=== PATIENT | female | born 1985 | race African-American/Black ===

== ENCOUNTER 2018-02-15 10:14 | Emergency (ER) | payer MEDICAID ==
[~2018-02-15] VITALS: Ht 177.8 cm; Wt 61.8 kg
[2018-02-15] MEDS ORDERED: LORAZEPAM 1MG TABLET PO ONE (11:15)
[2018-02-15] MEDS ORDERED: IBUPROFEN 600MG TABLET PO ONE (11:15)
[2018-02-15 14:32] VITALS: BP 115/78
== END 2018-02-15 14:34 | disposition home or self-care (01) ==
LOC: ER 10:14
DX: S90.01XA Contusion of right ankle, initial encounter (principal); J45.909 Unspecified asthma, uncomplicated; G43.909 Migraine, unspecified, not intractable, without status migrainosus; Z88.0 Allergy status to penicillin; Z88.1 Allergy status to other antibiotic agents; Z88.5 Allergy status to narcotic agent; Z91.040 Latex allergy status; Z88.8 Allergy status to other drugs, medicaments and biological substances; W22.8XXA Striking against or struck by other objects, initial encounter; Y93.01 Activity, walking, marching and hiking; Y92.89 Other specified places as the place of occurrence of the external cause; Y99.8 Other external cause status
CPT/HCPCS: 71045; 73610; 73630; 81025; 99284

== ENCOUNTER 2018-02-15 15:28 | Emergency (ER) | payer MEDICAID ==
[~2018-02-15] VITALS: Ht 177.8 cm; Wt 61.6 kg
[2018-02-15 17:34] VITALS: BP 122/62
== END 2018-02-16 00:46 | disposition home or self-care (01) ==
LOC: ER 18:24
DX: Z13.1 Encounter for screening for diabetes mellitus (principal); J45.909 Unspecified asthma, uncomplicated; G43.909 Migraine, unspecified, not intractable, without status migrainosus; Z88.0 Allergy status to penicillin; Z88.5 Allergy status to narcotic agent; Z88.8 Allergy status to other drugs, medicaments and biological substances; Z91.040 Latex allergy status
CPT/HCPCS: 99281

== ENCOUNTER 2024-10-23 00:43 | Emergency (ER) | payer OTHER ==
[~2024-10-23] VITALS: Ht 177.8 cm; Wt 69.0 kg
[~2024-10-23 00:43] MED LIST: CETI-89 PO; METH-773 PO; MONT-46 PO; SUCR1TAB30 PO
[2024-10-23 00:55] VITALS: TEMP 36.8; O2SAT 100
[2024-10-23] MEDS ORDERED: BENZ100C86 MT (03:14)
[2024-10-23 03:45] VITALS: BP 138/88; PULSE 94; RESP 16
[2024-10-23] MEDS: IBUPROFEN 600MG TABLET PO ONE (03:45)
[2024-10-23 03:46] VITALS: TEMP 98.2
[2024-10-23] MEDS: ACETAMINOPHEN 500MG TABLET PO ONE (03:46)
== END 2024-10-23 03:59 | disposition home or self-care (01) ==
LOC: ER 00:43
DX: J06.9 Acute upper respiratory infection, unspecified (principal); B97.89 Other viral agents as the cause of diseases classified elsewhere; J45.909 Unspecified asthma, uncomplicated; Z98.890 Other specified postprocedural states; Z88.5 Allergy status to narcotic agent; Z88.0 Allergy status to penicillin; Z79.899 Other long term (current) drug therapy; Z91.040 Latex allergy status
CPT/HCPCS: 71045; 99283